=== PATIENT | female | born 1960 | race Two or more races ===

== ENCOUNTER 2019-07-29 06:05 | Day surgery (SDC) | payer OTHER ==
[~2019-07-29] VITALS: Ht 160 cm; Wt 106.4 kg
[~2019-07-29 06:05] MED LIST: CeFAZolin 2 GM/DEXTROSE 50 ML IV ONE; RINGERS SOLUTION,LACTATED 1,000 ML IV ONE
[2019-07-29] MEDS ORDERED: PROPOFOL 1% 20 ML VIAL IVP ONE (06:06)
[2019-07-29] MEDS ORDERED: FentaNYL CITRATE-PF 100 MCG/2 ML VIAL IVP ONE (06:06)
[2019-07-29] MEDS ORDERED: ONDANSETRON HCL 4 MG/2 ML VIAL IVP ONE (06:06)
[2019-07-29] MEDS ORDERED: SUCCINYLCHOLINE CHLORIDE 20 MG/ML 10 ML VIAL IVP ONE (06:06)
[2019-07-29] MEDS ORDERED: ROCURONIUM BROMIDE 10 MG/ML 5 ML VIAL IVP ONE (06:06)
[2019-07-29] MEDS ORDERED: SODIUM CL IRRIG SOLN BAG 3,000 ML IRRIG ONE ×3 (06:10→07:43)
[2019-07-29] MEDS ORDERED: BUPIVACAINE HCL/PF 0.25% 30 ML VIAL ONE (06:10)
[2019-07-29] MEDS ORDERED: MUPIROCIN CALCIUM 2% 22 GM OINTMENT ONE (06:11)
[2019-07-29] MEDS ORDERED: CHOL200059 PO (06:36)
[2019-07-29] MEDS ORDERED: LISI10TA7 PO (06:36)
[2019-07-29] MEDS ORDERED: BI-EST PO (06:36)
[2019-07-29] MEDS ORDERED: ATOR20TA65 PO (06:36)
[2019-07-29] MEDS ORDERED: VITA100049 PO (06:42)
[2019-07-29] MEDS ORDERED: UBID50TA3 PO (06:42)
[2019-07-29] MEDS ORDERED: MULT-1203 PO (06:42)
[2019-07-29] MEDS ORDERED: ECHI350C PO (06:42)
[2019-07-29] MEDS ORDERED: LACT1CAP78 PO (06:42)
[2019-07-29] MEDS ORDERED: CYAN250014 PO (06:42)
[2019-07-29] MEDS ORDERED: GARL400T2 PO (06:42)
[2019-07-29] MEDS ORDERED: OMEG1CAP83 PO (06:42)
[2019-07-29] MEDS ORDERED: GLUC-252 PO (06:42)
[2019-07-29] MEDS ORDERED: VITA1CAP PO (06:42)
[2019-07-29] MEDS ORDERED: FentaNYL CITRATE-PF 100 MCG/2 ML VIAL IVP PRN (07:00)
[2019-07-29] MEDS ORDERED: HYDROmorphone 2 MG/ML SYRINGE IVP PRN (07:00)
[2019-07-29] MEDS ORDERED: MEPERIDINE-PF 25 MG/ML VIAL IVP PRN (07:00)
[2019-07-29] MEDS ORDERED: BUPIVACAINE LIPOSOME/PF 1.3%-13.3MG/ML SUSPENSION 10 ML VIAL INJ ONE (08:00)
[2019-07-29] MEDS ORDERED: OXYGEN THERAPY IH SCH (08:00)
== END 2019-07-29 10:20 | disposition home or self-care (01) ==
LOC: SURGERY 06:05
PROVIDERS: ATTEND Orthopaedic Surgery
DX: S83.241A Other tear of medial meniscus, current injury, right knee, initial encounter (principal); M65.861 Other synovitis and tenosynovitis, right lower leg; Z79.899 Other long term (current) drug therapy; X58.XXXA Exposure to other specified factors, initial encounter; Y93.89 Activity, other specified; Y92.89 Other specified places as the place of occurrence of the external cause; Y99.8 Other external cause status; I10 Essential (primary) hypertension; Z90.49 Acquired absence of other specified parts of digestive tract; E66.01 Morbid (severe) obesity due to excess calories
CPT/HCPCS: 29881; 29876; 88304; 93005; J0330; J0690; J2405; J2704; J3010; J3490 ×2; J7120